=== PATIENT | male | born 1960 | race Caucasian/White ===

== ENCOUNTER 2022-04-26 16:32 | Inpatient (IN) | payer BC, OTHER ==
[~2022-04-26] VITALS: Ht 185.4 cm; Wt 88.9 kg
[~2022-04-26 16:32] MED LIST: HYDR1TAB PO; TYLENOL #3 PO
--- NOTE | 2022-04-26 16:40 | NUR ---
ACUTE CP, WITH ASSOCIATED LEFT SIDE WEAKNESS - LKW - 1600 PM BS - 101, CODE STROKE CALLED; DYSPHAGIA - COMPLAINED BY THE PATIENT. A&OX4. PT VITALS ARE WITHIN NORMAL LIMITS, NO RESPIRATORY DISTRESS NOTED. DR MARX AT PT'S SIDE.
--- NOTE | 2022-04-26 16:42 | NUR ---
CALLED CODE STROKE
--- NOTE | 2022-04-26 16:44 | NUR ---
PT TO CT VIA ACLS PROTOCALS.
--- NOTE | 2022-04-26 16:46 | NUR ---
CALLED TELE [facility] [phone] REEVES
[2022-04-26] MEDS ORDERED: IOHEXOL-350 100 ML VIAL IV ONE ×2 (16:48→16:49)
[2022-04-26] MEDS ORDERED: IV NS 0.9% 250 ML IV ONE (16:48)
--- NOTE | 2022-04-26 16:53 | NUR ---
DR. MARX SPEAKING WITH TELE NEUROLOGIST DR. MARIANNA REEVES
--- NOTE | 2022-04-26 17:06 | NUR ---
PT ONCALL WITH TELE-NEURO TELE, PT WAS EXPLAINED THE RISKS AND BENEFITS ON TPA AND PT DECLINED.
--- NOTE | 2022-04-26 17:14 | NUR ---
DR. REEVES SPEAKING WITH DR. MARX.
--- NOTE | 2022-04-26 17:23 | NUR ---
URINE COLLECTED AND SENT TO THE LAB
--- NOTE | 2022-04-26 17:33 | NUR ---
MOVE SHEET SUBMITTED.
--- NOTE | 2022-04-26 17:36 | NUR ---
COVID TEST COLLECTED AND SENT
--- NOTE | 2022-04-26 17:45 | NUR ---
BROTHER CLOTILDE HAGER [phone]
[2022-04-26 17:54] LABS: BASOPHILS % (AUTO) 0.9 % (0.0-2.0); EOSINOPHILS % (AUTO) 2.1 % (0.0-6.0); HEMATOCRIT 40 % (39-51); HEMOGLOBIN 13.8 g/dL (13.5-17.5); LYMPHOCYTES # (AUTO) 0.9 K/uL (0.8-4.8); LYMPHOCYTES % (AUTO) 24.4 % (20.0-44.0); MEAN CORPUSCULAR HGB CONC 34 g/dl (31.0-36.0); MEAN CORPUSCULAR VOLUME 92 fL (80-96); MONOCYTES # (AUTO) 0.5 K/uL (0.1-1.30); MONOCYTES % (AUTO) 13.6 % (2.0-12.0); NEUTROPHILS # (AUTO) 2.1 K/uL (1.8-8.9); PLATELET COUNT (AUTO) 209 K/uL (150-450); RED BLOOD CELL COUNT(AUTO) 4.35 MIL/uL (4.5-6.0); WHITE BLOOD COUNT (AUTO) 3.5 K/uL (4.3-11.0)
[2022-04-26 18:11] LABS: CALCIUM, SERUM 8.3 mg/dL (8.5-10.1); CARBON DIOXIDE 30 mmol/L (21-32); CHLORIDE 104 mmol/L (98-107); CREATININE 0.7 mg/dL (0.6-1.3); GLUCOSE 105 mg/dL (74-106); POTASSIUM 3.4 mmol/L (3.5-5.1); SODIUM SERUM 137 mmol/L (136-145); UREA NITROGEN, BLOOD 13 mg/dL (7-18)
--- NOTE | 2022-04-26 18:55 | NUR ---
IN AND OUT CATH DONE; ABLE TO DECOMPRESS BLADDER 1000ML URINE, YELLOW IN COLOR, REMOVED. VERBALIZED RELIEF.
--- NOTE | 2022-04-26 19:01 | NUR ---
COVID ANTOGEN POSITIVE PER LAB. DR MARX MADE AWARE.
--- NOTE | 2022-04-26 21:37 | NUR ---
Dr. Miguel was paged
[2022-04-26] MEDS ORDERED: ASPIRIN 325 MG TABLET PO ONE (22:00)
[2022-04-26] MEDS ORDERED: MORPHINE SULFATE INJ 2 MG/ML DISP.SYRIN IV PRN (22:00)
[2022-04-26] MEDS ORDERED: ACETAMINOPHEN 325 MG TABLET PO PRN (22:00)
[2022-04-26] MEDS ORDERED: hydrALAZINE HCL IV 20 MG VIAL IV PRN (22:00)
[2022-04-26] MEDS ORDERED: IV NS 0.9% 1,000 ML IV ONE (22:00)
[2022-04-26] MEDS ORDERED: ONDANSETRON HCL/PF 4 MG/2 ML VIAL IVP PRN (22:00)
--- NOTE | 2022-04-26 22:00 | NUR ---
TELE 110
--- NOTE | 2022-04-26 22:08 | NUR ---
CALLED FOR REPORT. NURSE WILL CALL BACK.
--- NOTE | 2022-04-26 22:35 | NUR ---
REPORT GIVEN TO ELVIS
--- NOTE | 2022-04-26 23:00 | NUR ---
RECEIVED REPORT FROM ER NURSE ZACK. PT TRANSFERRED FROM ER VIA RSURPRISE, PLACED IN ROOM 106 BED 1. DIAGNOSIS OF STROKE W/U. PT AWAKE, ALERT/ORIENTED X4 AND VERBALLY RESPONSIVE. BREATHING EVEN AND UNLABORED. ON ROOM AIR AND PT'S O2 SAT SETTING 100%. IV ACCESS ON RAC#18G INTACT AND PATENT. NO S/S OF INFILTRATIONS. NO C/O PAIN OR DISCOMFORT AT THIS MOMENT. NO ACUTE DISTRESS. BODY ASSESSMENT DONE. NOTED GENERALIZED BODY XEROSIS SPECIALLY ON BILATERAL LOWER EXTREMITIES. NO OPEN SKIN NOTED. NO SKIN DISCOLORATIONS. OFFERED URINAL FOR URINATE. PT RAPID COVID POSITIVE. ALL ISOLATION PRECAUTION IN PLACE. ALL SAFETY MEASURES IN PLACE. BED IN LOWEST POSITION AND LOCKED. SIDE RAILS UP X2, PLACE CALL LIGHT WITH IN REACH. WILL CONTINUE TO MONITOR
--- NOTE | 2022-04-26 23:05 | NUR ---
PT TRANSPORTED TO ROOM 106 ON RESTAURANT AREA MANAGER PER ACLS PROTOCOL WITHOUT INCIDENT.
[2022-04-26] MEDS: TAMSULOSIN 0.4 MG CAP.SR.24H PO SCH (23:48)
[2022-04-26] MEDS: APIXABAN 5 MG TABLET PO SCH (23:48)
[2022-04-26] MEDS: ATORVASTATIN 40 MG TABLET PO SCH (23:48)
[2022-04-26 23:51] LABS: CHOLESTEROL 164 mg/dL (<200); HDL CHOLESTEROL 44 mg/dL (40-60); LDL 103 mg/dL (0-99); TRIGLYCERIDES 150 mg/dL (30-150)
[2022-04-27] VITALS: BP 123/106
--- NOTE | 2022-04-27 | NUR ---
RN NOTES: DUE MEDS GIVEN WITH WATER. PT WAS ABLE TO SWALLOW WITHOUT ANY DIFFICULTIES. WILL CONTINUE TO MONITOR
--- NOTE | 2022-04-27 00:07 | NUR ---
RN NOTE PT COMPLAINING OF URINARY RETENTION, FELT BLADDER IS FULL. NOTIFIED DR OLEA, ORDERED TO INSERT RODRIGUEZ CATHETER.
--- NOTE | 2022-04-27 00:13 | NUR ---
RN NOTE RODRIGUEZ CATHETER INSERTED. PT TOLERATED WELL. 1100L URINE AND DRAINING MORE. WILL CONTINUE TO MONITOR.
[2022-04-27 04:00] VITALS: BP 112/65
[2022-04-27 06:32] LABS: BASOPHILS % (AUTO) 0.5 % (0.0-2.0); EOSINOPHILS % (AUTO) 1.6 % (0.0-6.0); HEMATOCRIT 41 % (39-51); HEMOGLOBIN 13.8 g/dL (13.5-17.5); LYMPHOCYTES # (AUTO) 1.1 K/uL (0.8-4.8); LYMPHOCYTES % (AUTO) 26.6 % (20.0-44.0); MEAN CORPUSCULAR HGB CONC 34 g/dl (31.0-36.0); MEAN CORPUSCULAR VOLUME 94 fL (80-96); MONOCYTES # (AUTO) 0.5 K/uL (0.1-1.30); MONOCYTES % (AUTO) 11.5 % (2.0-12.0); NEUTROPHILS # (AUTO) 2.4 K/uL (1.8-8.9); NEUTROPHILS % (AUTO) 59.8 % (43.0-81.0); PLATELET COUNT (AUTO) 171 K/uL (150-450); RED BLOOD CELL COUNT(AUTO) 4.35 MIL/uL (4.5-6.0)
--- NOTE | 2022-04-27 06:37 | NUR ---
RN CLOSING NOTES: PT IN BED AWAKE, ALERT/ORIENTED X4 AND VERBALLY RESPONSIVE. BREATHING EVEN AND UNLABORED. ON ROOM AIR AND PT'S O2 SAT 100%. IV ACCESS ON RAC#18G INTACT AND PATENT. NO S/S OF INFILTRATIONS. NO C/O PAIN OR DISCOMFORT AT THIS MOMENT. NO ACUTE DISTRESS. ALL DUE MEDS GIVEN ORDERED. ISOLATION PRECAUTION IN PLACE. ALL SAFETY MEASURES IN PLACE. BED IN LOWEST POSITION AND LOCKED. SIDE RAILS UP X2, PLACE CALL LIGHT WITH IN REACH. WILL ENDORSE TO MORNING SHIFT NURSE.
--- NOTE | 2022-04-27 07:36 | NUR ---
RN OPENING NOTE-PT IN BED AWAKE, ALERT/ORIENTED X4 AND VERBALLY RESPONSIVE. BREATHING EVEN AND NON-LABORED. ON ROOM AIR AND PT'S O2 SAT 100%. IV ACCESS ON RAC#18G INTACT AND PATENT.. NO C/O PAIN OR DISCOMFORT AT THIS MOMENT. NO ACUTE DISTRESS. RODRIGUEZ W CLEAR YELLOW UA DRAINING. ISOLATION PRECAUTION IN PLACE. ALL SAFETY MEASURES IN PLACE. BED IN LOWEST POSITION AND LOCKED. SIDE RAILS UP X2, PLACE CALL LIGHT WITH IN REACH. MONITOR / ASSIST
[2022-04-27 08:00] VITALS: BP 143/77
[2022-04-27] MEDS: APIXABAN 5 MG TABLET PO SCH ×2 (08:34→21:28)
[2022-04-27 08:52] LABS: ALBUMIN 2.9 g/dL (3.4-5.0); BILIRUBIN,TOTAL 0.7 mg/dL (0.2-1.0); CALCIUM, SERUM 8.5 mg/dL (8.5-10.1); CREATININE 0.6 mg/dL (0.6-1.3); MAGNESIUM 2.3 mg/dL (1.8-2.4); PHOSPHORUS 4.2 mg/dL (2.5-4.9); POTASSIUM 4.3 mmol/L (3.5-5.1); TOTAL PROTEIN, SERUM 6.4 g/dL (6.4-8.2)
[2022-04-27 12:00] VITALS: BP 134/80
--- NOTE | 2022-04-27 14:02 | NUR ---
RN NOTE- MRI PER DR PHILLIP. QUESTIONAIRE DONE. CALLED RADIOLOGY AND LEFT MESSAGE REGARDING. COULD BE AWAITING APPROVAL.
[2022-04-27 16:00] VITALS: BP 123/66
--- NOTE | 2022-04-27 18:32 | NUR ---
RN CLOSING NOTE-PT IN BED AWAKE, ALERT/ORIENTED X4 AND VERBALLY RESPONSIVE. MRI COMPLETED AND RESULTS PENDING. BREATHING EVEN AND NON-LABORED. ON ROOM AIR AND PT'S O2 SAT 99%. IV ACCESS ON RAC#18G INTACT AND PATENT.. NO C/O PAIN OR DISCOMFORT AT THIS MOMENT. NO ACUTE DISTRESS. RODRIGUEZ W CLEAR YELLOW UA DRAINING. ISOLATION PRECAUTION IN PLACE. ALL SAFETY MEASURES IN PLACE. BED IN LOWEST POSITION AND LOCKED. SIDE RAILS UP X2, PLACE CALL LIGHT WITH IN REACH. MONITOR / ASSIST
--- NOTE | 2022-04-27 19:30 | NUR ---
RN OPENING NOTES: RECEIVED PT IN BED AWAKE, ALERT/ORIENTED X4 AND VERBALLY RESPONSIVE. BREATHING EVEN AND UNLABORED. ON ROOM AIR AND PT TOLERATED WELL. IV ACCESS ON RAC#18G INTACT AND PATENT. NO S/S OF INFILTRATIONS. NO C/O PAIN OR DISCOMFORT AT THIS MOMENT. NO ACUTE DISTRESS. ISOLATION PRECAUTION IN PLACE. ALL SAFETY MEASURES IN PLACE. BED IN LOWEST POSITION AND LOCKED. SIDE RAILS UP X2, PLACE CALL LIGHT WITH IN REACH. WILL CONTINUE TO MONITOR
[2022-04-27 20:00] VITALS: BP 146/77
--- NOTE | 2022-04-27 20:20 | NUR ---
RN NOTES: PT C/O CONSTIPATION, WANT MEDICATION FOR BOWEL MOVEMENT? NOTIFIED DR. MACE. ORDER- MIRALAX 17GM DAILY PRN. ORDER NOTED AND CARRIED OUT.
[2022-04-27] MEDS: TAMSULOSIN 0.4 MG CAP.SR.24H PO SCH (21:27)
[2022-04-27] MEDS: ATORVASTATIN 40 MG TABLET PO SCH (21:27)
[2022-04-27] MEDS: POLYETHYLENE GLYCOL 3350 17 GM POWD.PACK PO PRN (21:28)
--- NOTE | 2022-04-27 21:56 | NUR ---
RN OPENING NOTES: RECEIVED PT IN BED AWAKE, ALERT/ORIENTED X4 AND VERBALLY RESPONSIVE. BREATHING EVEN AND UNLABORED. ON ROOM AIR AND PT TOLERATED WELL. IV ACCESS ON RAC#18G INTACT AND PATENT. NO S/S OF INFILTRATIONS. NO C/O PAIN OR DISCOMFORT AT THIS MOMENT. NO ACUTE DISTRESS. ISOLATION PRECAUTION IN PLACE. ALL SAFETY MEASURES IN PLACE. BED IN LOWEST POSITION AND LOCKED. SIDE RAILS UP X2, PLACE CALL LIGHT WITH IN REACH. WILL CONTINUE TO MONITOR Addendum: 04/27/22 at 2159 by LISETH LEAL RN LATE CHART
[2022-04-27] MEDS ORDERED: ASPIRIN EC 81 MG TABLET.DR PO ONE (22:00)
[2022-04-28] VITALS (7 sets, daily range): BP systolic 109–131; BP diastolic 64–84
[2022-04-28 06:06] LABS: BASOPHILS % (AUTO) 0.4 % (0.0-2.0); HEMATOCRIT 41 % (39-51); HEMOGLOBIN 14.1 g/dL (13.5-17.5); LYMPHOCYTES # (AUTO) 1.3 K/uL (0.8-4.8); LYMPHOCYTES % (AUTO) 29.9 % (20.0-44.0); MEAN CORPUSCULAR HGB CONC 35 g/dl (31.0-36.0); MEAN CORPUSCULAR VOLUME 92 fL (80-96); MONOCYTES # (AUTO) 0.6 K/uL (0.1-1.30); MONOCYTES % (AUTO) 12.8 % (2.0-12.0); NEUTROPHILS # (AUTO) 2.3 K/uL (1.8-8.9); NEUTROPHILS % (AUTO) 52.9 % (43.0-81.0); PLATELET COUNT (AUTO) 197 K/uL (150-450); RED BLOOD CELL COUNT(AUTO) 4.45 MIL/uL (4.5-6.0); WHITE BLOOD COUNT (AUTO) 4.4 K/uL (4.3-11.0)
[2022-04-28 06:20] LABS: CALCIUM, SERUM 8.8 mg/dL (8.5-10.1); CREATININE 0.7 mg/dL (0.6-1.3); POTASSIUM 3.8 mmol/L (3.5-5.1)
--- NOTE | 2022-04-28 06:44 | NUR ---
RN CLOSING NOTES: PT IN BED AWAKE, ALERT/ORIENTED X4 AND VERBALLY RESPONSIVE. BREATHING EVEN AND UNLABORED. ON ROOM AIR AND PT'S O2 SAT 96%. IV ACCESS ON RAC#18G INTACT AND PATENT. NO S/S OF INFILTRATIONS. NO C/O PAIN OR DISCOMFORT AT THIS MOMENT. NO ACUTE DISTRESS. ALL DUE MEDS GIVEN ORDERED. NO BM NOTED DURING THIS SHIFT. ISOLATION PRECAUTION IN PLACE. ALL SAFETY MEASURES IN PLACE. BED IN LOWEST POSITION AND LOCKED. SIDE RAILS UP X2, PLACE CALL LIGHT WITH IN REACH. WILL ENDORSE TO MORNING SHIFT NURSE.
--- NOTE | 2022-04-28 07:30 | NUR ---
RN OPENING NOTE PATIENT IS IN BED, AWAKE, ALERT ORIENTED X 4. ON ROOM AIR, WITH O2 SATURATION AT 97%. SINUS RHYTHM AT 74 BPM ON ANCILLARY SERVICES MANAGER THERAPY. WITH RODRIGUEZ CATHETER ATTACHED TO URINE BAG DRAINING TO CLEAR YELLOW URINE. WITH RIGHT ANTECUBITAL SALINE LOCK, INTACT AND PATENT. DENIES PAIN, BREATHING UNLABORED AND NOT IN ANY FORM OF DISTRESS. BED IS LOCKED IN LOWEST POSITION, 3 SIDE RAILS UP, CALL LIGHT WITHIN REACH. ALL HOSPITAL PRECAUTIONS IN PLACE. WILL CONTINUE TO MONITOR THROUGHOUT SHIFT.
[2022-04-28] MEDS: APIXABAN 5 MG TABLET PO SCH ×2 (08:37→20:42)
--- NOTE | 2022-04-28 14:56 | NUR ---
RN NOTE STARTED BLADDER RETRAINING PRIOR TO RODRIGUEZ CATHETER REMOVAL. WILL CONTINUE TO MONITOR.
--- NOTE | 2022-04-28 16:21 | NUR ---
"SS Note: SW received consult to provide IHSS and Autism resources. Pt. is COVID positive. Pt. Is a 62-year-old male who demonstrates adequate insight to the reason for hospitalization. Per EMR, he presents to the hospital for weakness. Pt. was at the mall and had a sudden onset severe chest tightness. Pt. was oriented x4, alert, and cooperative. During interview, pt. was capable of following directions and appeared unkempt. Pt.s speech was at a normal rate and pt.s mood was elevated. Pt. reported no hx of mental health, substance abuse, suicidal ideation, or homicidal ideation. Pt. denies auditory hallucinations, visual hallucinations, paranoia, or delusions. SW explored pt.s living situation. Per pt., he lives in van with his 2 sons for about seven years [[address] [facility] [place] [address]]. Pt. stated that he tried applying for [place] and has been on a waitlist for years. Pt. applied for IHSS, got denied, then got appealed. Per pt., he is trying to get IHSS for his sons. Pt. mentioned that his children are currently with his brother in [place], he did not want the kids to be alone in the van. Pt. stated that his two kids have autism, 17 and 25 y/o. Pt. has applied for [facility] for his kids when they were little. Pt.s goal right now is to get housing. Pt. receives SSI [1120/a month]. Plan: SW provided available resources and pt. accepted. Upon discharge, pt. is still coming up with a plan, but will most likely go back to his Van. Resources Provided: [facility] Information. [facility] List [place] [facility] [address] Address [address] [place] [address] Mailing Address [address] [place], [place] [address] General Information [phone] TTY: [address] [facility]: INTAKE DEPARTMENT Office: Email: [email or web address] Phone - [phone] (main number) - [phone] (direct line to Intake Unit for applying for [facility] services) [facility] [address], [address] [place] [address] [place] Work [email or web address] Areas covered: [facility] including the communities of [place] and [facility] [address], [address] [place] [address] [place] Work [email or web address] Areas covered: [facility] including [place] [facility] Year-round shelters: [facility] [place] [address] [place], [place] [id number] ; [place] [facility] [address] [place] [address]; [facility] [id number] [facility] [address] Winter Shelters: Jacklyn Méndez [place] Provider: [facility] [place] Address: [address] [facility] [place], [address] # of Beds: 47 Population Served: [facility] 6 | [facility] Manisha Staley Evans Provider: Home at Last Address: [address], [address] # of Beds: 66 Population Served: [facility] [employer] Evans Provider: First to Serve Address: [address] [facility], [address] # of Beds: 56 Population Served: [facility] Alan KaileeSophie [place] Provider: SSG[facility] Address: [address] [facility], [address] # of Beds: 49 Population Served: [facility] SPA 8 | [facility] Provider: First to Serve Address: [address] [facility], [address] # of Beds: 37 Population Served: Coed Hygiene: [facility]: [address] [address] ; [facility] [address] [facility] Reseda ; [facility] [address] [facility] . Food Resources: [place] [employer] [facility] at [facility]- [address]. [place]; Meet Each Need with Dignity ([facility]) [address] [facility]; [facility] Food Pantry [address]; [facility] [address]6 [facility]. Mental Health resources provided: [facility] [address] [place], [place] [address] ; [facility] [address] [facility] [address], [place], [place] [phone] ; [facility] [address] [place] [address] ; [facility] [address] [place], [place] [address] Healthcare Clinics: [facility] [address] [facility], [address] [place]. [place] ; [facility] [address] [facility] [address] [place] [address]; [facility] Health Dayhoit [address] [place] [address] [phone] Counseling--Outpatient [facility] [address] [facility], [address] [place], [place] [address] (Specializes in in-depth psychotherapy for emotional distress: anxiety, depression, interpersonal conflicts, life transitions, childhood abuse) [facility] [address] [place] [address] (Assist with solving problem marital difficulties, separation & divorce, aging parents, & grief, chronic & terminal illness) [facility] [address] [place] [address] (Deal with loss & grief, anxiety, marital difficulties) Homebound/Mental Health Services [address] [facility], [address] [place] [address] (Provide in-home mental services to people who are incapable of leaving their homes) Organization for Needs of the Elderly Senior Service/Resource Center [address] [place] [address] [facility] [address] [place] [address] PSYCHIATRIC OUTPATIENT SERVICES [facility] Partial Hospitalization and Intensive Outpatient Program (Managed Care and [place] Only)[address] [facility]. [facility] [phone] [facility] Partial Hospitalization and Outpatient [id number] [facility]. [address] [place], [place] [phone] Critical access hospital Mental Health Dayhoit Edw[address] [facility]. [address] [place], [place] [phone] [facility] Partial Hospitalization and Outpatient [id number] [place], [phone] Substance Abuse resources provided included: [facility] Substance Abuse Self-Helpline ([facility]) ; CRI -HELP [address] [facility]. [place] [address] ; [facility] [address] [facility] [address] ; [facility] [address] [facility] [address] ; [facility] [address] [facility] [address] ; [facility] [address] [facility] [address] ; [facility] [address] [facility] [address] ; [facility] Substance Abuse Helpline([facility] ; [facility] ; [facility] [place]; [facility]; Cri[facility]Help [place]; [facility] Rodolfo Zaragozaisaiah; [facility] [place]; [facility]; [facility] [place]; [facility], [facility]. [place]; Alcoholics Anonymous -SFV; Vz-Wkqg-Gayqeek ; Marijuana Anonymous -SFV; Narcotics Anonymous www.[email or web address];"
--- NOTE | 2022-04-28 19:01 | NUR ---
RN CLOSING NOTE PATIENT REMAINS TABLE THROUGHOUT SHIFT. ON ROOM AIR WITH SATURATION OF 99%, NOT IN ANY FORM OF DISTRESS. RIGHT ANTECUBITAL IV SALINE LOCK INTACT AND PATENT/ RODRIGUEZ CATHETER REMOVED, ORDERED. ALL HOSPITAL SAFETY MEASURES IN PLACE. WILL ENDORSE TO ADZ WORKER NURSE.
--- NOTE | 2022-04-28 19:56 | NUR ---
RESIDENTIAL CARPET INSTALLER OPENING NOTE RECEIVED PATIENT IN BED, AWAKE, ALERT ORIENTED X 4. ON ROOM AIR TOLERATING WELL. NO S/SX OF SOB AND DISTRESS AT THIS TIME. ON TELEMETRY MONITORING. WITH R AC SALINE LOCK, INTACT, PATENT AND FLUSHES WELL. DENIES PAIN, BREATHING EVEN AND UNLABORED. CALL LIGHT WITHIN REACH. BED LOCKED AND IN LOWEST POSITION, SIDE RAILS UP X2, ALL HOSPITAL PRECAUTIONS IN PLACE. WILL CONTINUE TO MONITOR.
[2022-04-28] MEDS: POLYETHYLENE GLYCOL 3350 17 GM POWD.PACK PO PRN (20:43)
[2022-04-28] MEDS: ATORVASTATIN 40 MG TABLET PO SCH (21:00)
[2022-04-28] MEDS: TAMSULOSIN 0.4 MG CAP.SR.24H PO SCH (21:00)
[2022-04-29] VITALS: BP 127/76
[2022-04-29 04:00] VITALS: BP 113/75
--- NOTE | 2022-04-29 06:25 | NUR ---
GYMNASTIC COACH CLOSING NOTE PATIENT AWAKE IN BED RESTING, A/O X4. ABLE TO MAKE NEEDS KNOWN, ON RA TOLERATING WELL, NO DISTRESS OR SHORTNESS OF BREATHING. IV ACCESS ON RAC #18G INTACT AND PATENT, ON TELEMONITORING CURRENTLY READING 76 BPM, ALL DUE MEDS GIVEN, KEPT DRY AND CLEAN, MAINTAINS ISOLATION PRECAUTION, V/S TAKEN AND RECORDED, CALL LIGHT WITHIN REACH, BED ALARM ON, BED IN LOWEST AND LOCKED POSITION, SIDE RAILS UP X2. WILL ENDORSE TO AM SHIFT NURSE.
--- NOTE | 2022-04-29 07:30 | NUR ---
RN OPENING NOTE PATIENT IS IN BED, AWAKE,ALERT AND ORIENTED X4. ON ROOM AIR AT 98%. SINUS RHYTHM AT 70 BPM ON LABOR AND DELIVERY NURSE. WITH RIGHT ANTECUBITAL SALINE LOCK GAUGE 20 INTACT AND PATENT AND WITHOUT SIGNS OF INFILTRATION OR PHLEBITIS. BREATHING UNLABORED AND NOT IN ANY FORM OF DISTRESS. BED IS LOCKED IN LOWEST POSITION, 3 SIDE RAILS UP, CALL LIGHT WITHIN REACH. WILL CONTINUE TO MONITOR THROUGHOUT SHIFT.
[2022-04-29 07:43] LABS: CALCIUM, SERUM 9.1 mg/dL (8.5-10.1); CREATININE 0.7 mg/dL (0.6-1.3); POTASSIUM 3.7 mmol/L (3.5-5.1)
[2022-04-29 08:00] VITALS: BP 134/85
[2022-04-29] MEDS: APIXABAN 5 MG TABLET PO SCH ×2 (08:15→21:26)
[2022-04-29] MEDS ORDERED: MAGNESIUM HYDROXIDE 30 ML UDC PO PRN (09:00)
[2022-04-29 12:00] VITALS: BP 110/77
[2022-04-29 16:00] VITALS: BP 117/78
--- NOTE | 2022-04-29 18:35 | NUR ---
RN CLOSING NOTE PATIENT IS IN BED AND REMAINS ALERT, ORIENTED X 4. PATIENT REMAINED STABLE THROUGHOUT SHIFT. ON ROOM AIR WITH OXYGEN SATURATION OF 97%. SINUS RHYTHM ON BUTCHER OR SMALLGOODS MAKER. RIGHT ANTECUBITAL SALINE LOCK INTACT AND PATENT, AND WITH NO SIGNS OF PHLEBITIS. KEPT ON DROPLET AND ISOLATION PRECAUTION. ALL DUE MEDICATIONS GIVEN. KEPT COMFORTABLE AND CLEAN. ALL HOSPITAL SAFETY PRECAUTIONS IN PLACE. BED IS LOCKED IN LOWEST POSITION, 3 SIDE RAILS UP, CALL LIGHT WITHIN REACH. WILL ENDORSE TO COMPUTER FIELD TECHNICIAN NURSE.
--- NOTE | 2022-04-29 19:10 | NUR ---
RN NOTES PATIENT IS IN BED, AWAKE,ALERT AND ORIENTED X4. ON ROOM AIR AT 98%. SINUS RHYTHM AT 70 BPM ON EXPLOSIVE SPECIALIST. WITH IV ACCESS RIGHT ANTECUBITAL SALINE LOCK GAUGE 20 INTACT AND PATENT WITH NO SIGNS OF INFILTRATION OR PHLEBITIS NOTED SALINE LOCK. BREATHING UNLABORED AND NOT IN ANY FORM OF DISTRESS. BED IS LOCKED IN LOWEST POSITION, 3 SIDE RAILS UP, CALL LIGHT WITHIN REACH. WILL CONTINUE TO MONITOR THROUGHOUT SHIFT.
[2022-04-29 20:00] VITALS: BP 122/78
[2022-04-29] MEDS: TAMSULOSIN 0.4 MG CAP.SR.24H PO SCH (21:25)
[2022-04-29] MEDS: ATORVASTATIN 40 MG TABLET PO SCH (21:25)
[2022-04-30] VITALS: BP 116/75
[2022-04-30 04:00] VITALS: BP 113/78
--- NOTE | 2022-04-30 06:42 | NUR ---
RN NOTES PATIENT IS IN BED AND REMAINS ALERT, ORIENTED X 4. PATIENT REMAINED STABLE THROUGHOUT SHIFT. ON ROOM AIR WITH OXYGEN SATURATION OF 97%. SINUS RHYTHM ON ADMISSIONS CONSULTANT. RIGHT ANTECUBITAL SALINE LOCK INTACT AND PATENT, AND WITH NO SIGNS OF PHLEBITIS. KEPT ON DROPLET AND ISOLATION PRECAUTION. ALL DUE MEDICATIONS GIVEN. KEPT COMFORTABLE AND CLEAN. ALL HOSPITAL SAFETY PRECAUTIONS IN PLACE. BED IS LOCKED IN LOWEST POSITION, 3 SIDE RAILS UP, CALL LIGHT WITHIN REACH. WILL ENDORSE TO MORNING SHIFT NURSE.
--- NOTE | 2022-04-30 07:35 | NUR ---
RN OPENING NOTES RECEIVED PATIENT IN BED, A/O X4. ON ENHANCED DROPLET ISOLATION PRECAUTION. ON ROOM AIR WITH OXYGEN SATURATION OF 97-98%, NO SOB NOTED. TELE MONITOR READING SR 82 BPM AT THIS TIME. R AC G#18 INTACT AND PATENT. SAFETY PRECAUTIONS IN PLACE. BED IS LOCKED IN LOWEST POSITION, 3 SIDE RAILS UP, CALL LIGHT WITHIN REACH. WILL CONTINUE TO MONITOR.
[2022-04-30 08:00] VITALS: BP 122/78
[2022-04-30] MEDS: APIXABAN 5 MG TABLET PO SCH ×2 (08:52→21:09)
--- NOTE | 2022-04-30 09:20 | NUR ---
RN NOTES PATIENT C/O R AC PAIN AT IV SITE. REDNESS, WARM TO TOUCH, SOME SWELLING NOTED. NO FLUIDS RUNNING AT THIS TIME. IV ACCESS REMOVED. ARM ELEVATED. MD NOTIFIED. WILL CONTINUE TO MONITOR
--- NOTE | 2022-04-30 09:30 | NUR ---
RN NOTES US OF THE R AC ORDERED
--- NOTE | 2022-04-30 10:00 | NUR ---
RN NOTES PATIENT IS REFUSING TO HAVE MRI CSPINE. RADIOLOGY AND MD NOTIFIED.
[2022-04-30 12:00] VITALS: BP 126/65
[2022-04-30] MEDS ORDERED: APIX5TAB PO (12:51)
[2022-04-30] MEDS ORDERED: ATOR40TA PO (12:51)
[2022-04-30] MEDS ORDERED: Tamsulosin PO (12:51)
--- NOTE | 2022-04-30 14:00 | NUR ---
RN NOTES SEEN BY OT
--- NOTE | 2022-04-30 14:10 | NUR ---
RN NOTES PROVIDED PATIENT WITH CANE AND WALKER FOR ASSISTANCE WITH AMBULATION AND TRANSFERS. REFUSING TO SEEK FURTHER PHYSICAL THERAPY TREATMENT. STATES, "I WILL ATTEND REHAB THERAPY ON MY OWN".
--- NOTE | 2022-04-30 15:40 | NUR ---
RN NOTES ER NURSE ESTABLISHED PIV ACCESS @ LEFT WRIST G#20. INTACT AND FLUSHES WELL. WILL CONTINUE TO MONITOR SITE
--- NOTE | 2022-04-30 15:54 | NUR ---
ALLOCATIONS CLERK NOTE P PER US PATIENT HAS RT AC SUPERFICIAL THROMBOPHLEBITIS PER PHYLLIS RN TAP OUT OPERATOR NO IV HL AT THIS TIME
[2022-04-30 16:00] VITALS: BP 113/71
--- NOTE | 2022-04-30 18:17 | NUR ---
RN CLOSING NOTES PATIENT RESTING IN BED. NO COMPLAINTS VERBALIZED AT THIS TIME. PATIENT AWARE OF PLAN. ALL NEEDS MET AND ORDERS CARRIED OUT. IV ACCESS LEFT WRIST INTACT AND PATENT WITH NO S/SX OF INFILTRATION OR REDNESS NOTED, FLUSHES WELL. SAFETY PRECAUTIONS IN PLACE. WILL ENDORSE TO THE AUTOMOTIVE MANUFACTURER NURSE FOR FREDI
[2022-04-30 20:00] VITALS: BP 121/66
[2022-04-30] MEDS: ATORVASTATIN 40 MG TABLET PO SCH (21:09)
[2022-04-30] MEDS: TAMSULOSIN 0.4 MG CAP.SR.24H PO SCH (21:09)
[2022-05-01] VITALS: BP 118/75
[2022-05-01 04:00] VITALS: BP 119/79
--- NOTE | 2022-05-01 06:47 | NUR ---
RN NOTES PATIENT IS IN BED AND REMAINS ALERT, ORIENTED X 4. PATIENT REMAINED STABLE THROUGHOUT SHIFT. ON ROOM AIR WITH OXYGEN SATURATION OF 97%. SINUS RHYTHM ON APPRAISAL MANAGER. RIGHT ANTECUBITAL SALINE LOCK INTACT AND PATENT, AND WITH NO SIGNS OF PHLEBITIS. KEPT ON DROPLET AND ISOLATION PRECAUTION. ALL DUE MEDICATIONS GIVEN. KEPT COMFORTABLE AND CLEAN. ALL HOSPITAL SAFETY PRECAUTIONS IN PLACE. BED IS LOCKED IN LOWEST POSITION, 3 SIDE RAILS UP, CALL LIGHT WITHIN REACH. WILL ENDORSE TO MORNING SHIFT NURSE.
--- NOTE | 2022-05-01 07:49 | NUR ---
RN NOTES UP IN BED, AWAKE AND VERBALLY RESPONSIVE. CURRENTLY EATING BREAKFAST. NOT IN ACUTE DISTRESS. ANTICIPATED DISCHARGE TO HOME TODAY. SAFETY MEASURES IN PLACE.
[2022-05-01 08:00] VITALS: BP 117/76
[2022-05-01] MEDS: APIXABAN 5 MG TABLET PO SCH (08:27)
--- NOTE | 2022-05-01 08:45 | NUR ---
RN NOTES PER PATIENT, HIS BROTHER IS COMING FROM [place] TO PICK HIM UP TODAY.
[2022-05-01 12:00] VITALS: BP 131/77
--- NOTE | 2022-05-01 12:42 | NUR ---
RN NOTES PATIENT W/ STANDING ORDER FOR DISCHARGE TO HOME. DISCHARGE INSTRUCTION AND EDUCATION PROVIDED TO PATIENT. DISCHARGE FORM AND BELONGINGS LIST FORM SIGNED; ALL BELONGINGS ACCOUNTED FOR. NAME ARMBAND AND IV LINES REMOVED; NO BLEEDING NOTED. PATIENT REFUSED PHOTO OF SKIN ISSUE TO BE TAKEN, STATING THAT IT'S NOT NEEDED ANYMORE AND IT IS NOT AN ISSUE. PATIENT IS AMBULATORY W/ SPC AND FWW. PATIENT ACCOMPANIED TO THE LOBBY AND PICKED UP BY BROTHER VIA PRIVATE CAR. CHARGE NURSE AND MD AWARE OF DISCHARGE.
--- NOTE | 2022-05-01 13:14 | NUR ---
RN NOTES SPOKE W/ [facility] FOR TAMSULOSIN ORDER.
[2022-05-07] MEDS ORDERED: APIXABAN 5 MG TABLET PO SCH (21:00)
== END 2022-05-01 15:54 | disposition home or self-care (01) | DRG 198 ==
LOC: ER 16:47 → TELE1 22:04
PROVIDERS: ADMIT Internal Medicine; ATTEND Nurse Practitioner Acute Care
DX: I20.0 Unstable angina (principal); U07.1 COVID-19; I27.20 Pulmonary hypertension, unspecified; E44.0 Moderate protein-calorie malnutrition; E88.09 Other disorders of plasma-protein metabolism, not elsewhere classified; I80.8 Phlebitis and thrombophlebitis of other sites; E87.6 Hypokalemia; I10 Essential (primary) hypertension; Z86.711 Personal history of pulmonary embolism; Z86.718 Personal history of other venous thrombosis and embolism; N40.1 Benign prostatic hyperplasia with lower urinary tract symptoms; R33.8 Other retention of urine; Z91.19 Patient's noncompliance with other medical treatment and regimen
CPT/HCPCS: 36415; 70450-TC; 70496-TC; 70498-TC; 70544-TC; 70547-TC; 70551-TC; 71045-TC; 76882; 80048-TC; 80053-TC; 80061-TC; 83735-TC; 84100-TC; 84484-TC; 85025-TC; 85378-TC; 85730-TC; 86140-TC; 87081-TC; 93307-TC; 93970-TC; 93971-TC; 97116-TC; 97530-TC; C9803; G0378; J7030; J7050; Q9967